=== PATIENT | male | born 1995 | race Hispanic/Latino ===

== ENCOUNTER 2018-08-01 15:57 | Emergency (ER) | payer OTHER ==
--- NOTE | 2018-08-01 17:09 | RAD REPORT ---
EXAM DESCRIPTION: RAD - Knee Right 3 View - 08/01/2018 4:59 pm CLINICAL HISTORY: Knee pain following trauma COMPARISON: None. FINDINGS: No fracture, dislocation or periosteal reaction.No joint effusion seen. No joint space joshua rowing. No foreign body or other soft tissue abnormality. IMPRESSION: Negative right knee. Clinical concerns for internal derangement or occult bony injury could be further assessed with MR im aging.
--- NOTE | 2018-08-01 17:23 | ER ---
Nurse's Notes [facility] Name: Marcial Kearney Age: 23 yrs Sex: Male : 1995 Arrival Date: 08/01/2018 Time: 15:59 Bed Treatment Private MD: Diagnosis: Internal derangement of knee Presentation: 08/01 16:21 Presenting complaint: Patient states: I missed a step yesterday and bent my right knee la1 funny. It wasn't so bad last night but today I cannot walk on it. Transition of care: patient was not received from another setting of care. Onset of symptoms was August 01, 2018. Risk Assessment: Do you want to hurt yourself or someone else? Patient reports no desire to harm self or others. Initial Sepsis Screen: Does the patient meet any 2 criteria? No. Patient's initial sepsis screen is negative. Does the patient have a suspected source of infection? No. Patient's initial sepsis screen is negative. Care prior to arrival: None. 16:21 Method Of Arrival: Wheelchair la1 16:21 Acuity: ROHINI 4 la1 Historical: - Allergies: 16:22 No Known Allergies; la1 - PMHx: 16:22 None; la1 - Immunization history:: Adult Immunizations up to date. - Social history:: Smoking status: Patient/guardian denies using tobacco. - Ebola Screening: : No symptoms or risks identified at this time. Screenin:46 Abuse screen: Denies threats or abuse. Abuse screen: Denies threats or abuse. la1 Nutritional screening: No deficits noted. Tuberculosis screening: No symptoms or risk factors identified. Fall Risk None identified. Assessment: 16:45 General: Appears in no apparent distress. Behavior is calm, cooperative. Pain: la1 Complains of pain in right knee. Neuro: Level of Consciousness is awake, alert, obeys commands. Cardiovascular: Patient's skin is warm and dry. Musculoskeletal: Circulation, motion, and sensation intact. Capillary refill < 3 seconds, Range of motion: limited in right knee. Vital Signs: 16:22 BP 148 / 87; Pulse 80; Resp 16; Temp 97.6; Pulse Ox 98% on R/A; Weight 92.99 kg; Height la1 5 ft. 7 in. (170.18 cm); 16:22 Body Mass Index 32.11 (92.99 kg, 170.18 cm) la1 ED Course: 15:59 Patient arrived in ED. rg4 16:22 Triage completed. la1 16:22 Arm band placed on left wrist. la1 16:38 Veronique Ritter FNP-C is [facility]. snw 16:38 Pete Rios MD is Attending Physician. snw 16:46 Call light in reach. la1 17:01 Knee Right 3 View XRAY In Process Unspecified. EDMS 17:23 Lex Alonso MD is Referral Physician. snw 17:32 No provider procedures requiring assistance completed. Patient did not have IV access la1 during this emergency room visit. 17:55 Crutch training done. Knee immobilizer applied on right knee. 3 17:57 Geraldine Avalos, RN is Primary Nurse. iw Administered Medications: 17:32 Drug: fentaNYL (PF) 75 mcg Route: IM; Site: right gluteus; la1 17:57 Follow up: Response: No adverse reaction iw Outcome: 17:23 Discharge ordered by . snw 18:04 Patient left the ED. iw Signatures: Dispatcher [employer] EDDC Veronique Ritter FNP-C AN/SYQ 13 NAV/C2 OPERATOR-Csnw Geraldine Avalos RN RODOLFO iw Salvador Hung RN RN sd1 Emilie Tavarez 4 Itzel Thompson 3
--- NOTE | 2018-08-01 17:23 | EDPHYS ---
Physician Documentation [facility] Name: Marcial Kearney Age: 23 yrs Sex: Male : 1995 Arrival Date: 08/01/2018 Time: 15:59 Bed Treatment Private MD: ED Physician Pete Rios HPI: 08/01 17:31 This 23 yrs old Male presents to ER via Wheelchair with complaints of Knee snw Injury. 17:31 Onset: The symptoms/episode began/occurred suddenly, just prior to arrival. opposite snw knee. The patient has not recently seen a physician. 17:36 Pt states he missed a stair and heard a loud pop in his right knee, followed by pain in snw his knee. Pt caught himself and denies any other traumatic injury. Historical: - Allergies: 16:22 No Known Allergies; la1 - PMHx: 16:22 None; la1 - Immunization history:: Adult Immunizations up to date. - Social history:: Smoking status: Patient/guardian denies using tobacco. - Ebola Screening: : No symptoms or risks identified at this time. ROS: 17:30 Constitutional: Negative for fever, chills, and weight loss, Eyes: Negative for injury, snw pain, redness, and discharge, ENT: Negative for injury, pain, and discharge, Neck: Negative for injury, pain, and swelling, Cardiovascular: Negative for chest pain, palpitations, and edema, Respiratory: Negative for shortness of breath, cough, wheezing, and pleuritic chest pain, Abdomen/GI: Negative for abdominal pain, nausea, vomiting, diarrhea, and constipation, Back: Negative for injury and pain, : Negative for injury, bleeding, discharge, and swelling, Skin: Negative for injury, rash, and discoloration, Neuro: Negative for headache, weakness, numbness, tingling, and seizure, Psych: Negative for depression, anxiety, suicide ideation, homicidal ideation, and hallucinations. 17:30 MS/extremity: Positive for injury or acute deformity, decreased range of motion, pain, of the right knee. Exam: 17:26 Constitutional: This is a well developed, well nourished patient who is awake, alert, snw and in no acute distress. Head/Face: Normocephalic, atraumatic. Eyes: Pupils equal round and reactive to light, extra-ocular motions intact. Lids and lashes normal. Conjunctiva and sclera are non-icteric and not injected. Cornea within normal limits. Periorbital areas with no swelling, redness, or edema. ENT: Nares patent. No nasal discharge, no septal abnormalities noted. Tympanic membranes are normal and external auditory canals are clear. Oropharynx with no redness, swelling, or masses, exudates, or evidence of obstruction, uvula midline. Mucous membranes moist. Neck: Trachea midline, no thyromegaly or masses palpated, and no cervical lymphadenopathy. Supple, full range of motion without nuchal rigidity, or vertebral point tenderness. No Meningismus. Chest/axilla: Normal chest wall appearance and motion. Nontender with no deformity. No lesions are appreciated. Cardiovascular: Regular rate and rhythm with a normal S1 and S2. No gallops, murmurs, or rubs. Normal PMI, no JVD. No pulse deficits. Respiratory: Lungs have equal breath sounds bilaterally, clear to auscultation and percussion. No rales, rhonchi or wheezes noted. No increased work of breathing, no retractions or nasal flaring. Abdomen/GI: Soft, non-tender, with normal bowel sounds. No distension or tympany. No guarding or rebound. No evidence of tenderness throughout. Back: No spinal tenderness. No costovertebral tenderness. Full range of motion. Skin: Warm, dry with normal turgor. Normal color with no rashes, no lesions, and no evidence of cellulitis. Neuro: Awake and alert, GCS 15, oriented to person, place, time, and situation. Cranial nerves II-XII grossly intact. Motor strength 5/5 in all extremities. Sensory grossly intact. Cerebellar exam normal. Normal gait. Psych: Awake, alert, with orientation to person, place and time. Behavior, mood, and affect are within normal limits. 17:26 Musculoskeletal/extremity: Extremities: grossly normal except: noted in the right knee: decreased ROM, pain, ROM: limited active range of motion due to pain, limited passive range of motion due to pain, in the right knee, Circulation is intact in all extremities. Sensation intact. Compartment Syndrome exam of affected extremity: no sensation deficit, no palor, no weak pulses, Weight bearing: is unable to bear weight, Tendon exam: specific tendon testing normal through active and passive range of motion Calves: are non-tender. Vital Signs: 16:22 BP 148 / 87; Pulse 80; Resp 16; Temp 97.6; Pulse Ox 98% on R/A; Weight 92.99 kg; Height la1 5 ft. 7 in. (170.18 cm); 16:22 Body Mass Index 32.11 (92.99 kg, 170.18 cm) la1 MDM: 16:47 Patient medically screened. snw 17:29 Data reviewed: vital signs, nurses notes. Data interpreted: Pulse oximetry: on room air snw is 98 %. Interpretation: normal. Counseling: I had a detailed discussion with the patient and/or guardian regarding: the historical points, exam findings, and any diagnostic results supporting the discharge/admit diagnosis, the presence of at least one elevated blood pressure reading (>120/80) during this emergency department visit, radiology results, the need for outpatient follow up, to return to the emergency department if symptoms worsen or persist or if there are any questions or concerns that arise at home. Special discussion: Based on the history and exam findings, there is no indication for further emergent testing or inpatient evaluation. I discussed with the patient/guardian the need to see the orthopedic surgeon for further evaluation of the symptoms. 08/01 16:23 Order name: Knee Right 3 View XRAY; Complete Time: 17:10 la1 08/01 17:17 Order name: Knee Immobilizer; Complete Time: 17:58 snw 08/01 17:17 Order name: Crutches; Complete Time: 17:58 snw Administered Medications: 17:32 Drug: fentaNYL (PF) 75 mcg Route: IM; Site: right gluteus; la1 17:57 Follow up: Response: No adverse reaction iw Disposition: 08/01/18 17:23 Discharged to Home. Impression: Internal derangement of knee. - Condition is Stable. - Discharge Instructions: Crutch Use, Knee Immobilizer, Knee Sprain, Cryotherapy, Heat Therapy. - Prescriptions for Tylenol- Codeine #3 300-30 mg Oral Tablet - take 2 tablets by ORAL route every 6 hours As needed; 20 tablet. orphenadrine citrate 100 mg Oral Tablet Sustained Release - take 1 tablet by ORAL route 2 times per day As needed; 20 tablet. - Work release form, Medication Reconciliation Form, Thank You Letter, Antibiotic Education, Prescription Opioid Use form. - Follow up: Private Physician; When: 2 - 3 days; Reason: Recheck today's complaints, Continuance of care, Re-evaluation by your physician. Follow up: Emergency Department; When: As needed; Reason: Worsening of condition. Follow up: Lex Alonso MD; When: 2 - 3 days; Reason: Recheck today's complaints, Continuance of care, Re-evaluation by your physician. Addendum: 08/03/2018 08:12 Co-signature as Attending Physician, Pete Rios MD I agree with the assessment and k dr plan of care. Signatures: Dispatcher [employer] EDMS Pete Rios MD MD [facility] Veronique Ritter, [employer]-Csnw Geraldine Avalos, RN RN iw Salvador Hung RN RN la1 Corrections: (The following items were deleted from the chart) 08/01 18:04 17:23 08/01/2018 17:23 Discharged to Home. Impression: Internal derangement of knee. iw Condition is Stable. Forms are Medication Reconciliation Form, Thank You Letter, Antibiotic Education, Prescription Opioid Use. Follow up: Private Physician; When: 2 - 3 days; Reason: Recheck today's complaints, Continuance of care, Re-evaluation by your physician. Follow up: Emergency Department; When: As needed; Reason: Worsening of condition. Follow up: Lex Alonso; When: 2 - 3 days; Reason: Recheck today's complaints, Continuance of care, Re-evaluation by your physician. snw
[2018-08-01] MEDS ORDERED: FENTANYL CITR 100 MCG/2 ML ONE (17:37)
[2018-08-01 19:47] VITALS: BP 148/87; TEMP 97.6; O2SAT 98
== END 2018-08-01 18:04 | disposition home or self-care (01) ==
LOC: ER 15:57
DX: M23.91 Unspecified internal derangement of right knee (principal)
CPT/HCPCS: 96372; 99283; J3010